=== PATIENT | female | born 1970 | race Caucasian/White ===

== ENCOUNTER 2020-06-10 07:13 | Outpatient (CLI) | payer SELFPAY ==
[2020-06-10 07:47] LABS: Basophils Absolute Auto 0.1 K/mm3 (0.0-0.1); Eosinophils Absolute Auto 0.2 K/mm3 (0-0.3); Hematocrit 40.4 % (37.0-47.0); Hemoglobin 13.5 g/dL (12.0-15.0); Immature Granulocyte Absolute 0.03 K/mm3 (0.00-0.031); Immature Granulocyte Percent A 0.3 % (0-0.5); Lymphocytes Absolute Auto 3.81 K/mm3 (0.9-3.2); Lymphocytes Percent Auto 40.9 % (18.3-44.2); Mean Corpuscular HGB Conc 33.4 g/dl (32-36); Mean Corpuscular Hemoglobin 31.3 pg (26-34); Mean Corpuscular Volume 93.5 fl (80-100); Monocytes Absolute Auto 0.7 K/mm3 (0.1-0.6); Monocytes Percent Auto 7.2 % (2.6-8.5); Neutrophils Absolute Auto 4.5 K/mm3 (1.3-6.7); Neutrophils Percent Auto 48.6 % (45.5-73.1); Platelet Count Result 286 k/mm3 (150-375); Red Blood Count 4.32 M/mm3 (4.2-5.4); Red Cell Distribution Width 13.5 % (11.5-14.5); White Blood Count 9.3 K/mm3 (4.5-10.0)
[2020-06-10 08:02] LABS: Alanine Aminotransferase 45 U/L (4-35); Albumin Level 4.3 g/dL (3.5-5.1); Alkaline Phosphatase 131 U/L (38-126); Anion Gap 2 mmol/L (8-16); Aspartate Amino Transferase 58 U/L (14-36); Bilirubin,Total 0.4 mg/dL (0.2-1.3); Blood Urea Nitrogen 11 mg/dL (7-17); Calcium 9.4 mg/dL (8.4-10.2); Carbon Dioxide 30 mmol/L (22-30); Chloride 102 mmol/L (98-107); Cholesterol 202 mg/dL (0-200); Estimated Glomerular Filt Rate > 60; Glucose 100 mg/dL (65-105); HDL Direct 45 mg/dL; Potassium 4.3 mmol/L (3.4-5.0); Sodium 134 mmol/L (137-145); Triglycerides 252 mg/dL (<150)
[2020-06-10 08:13] LABS: LDL Cholesterol Direct 128 mg/dL
== END 2020-06-10 07:14 | disposition home or self-care (01) ==
PROVIDERS: PCP Family Medicine; Visit Provider Physician Assistant
DX: Z13.220 Encounter for screening for lipoid disorders (principal); G89.4 Chronic pain syndrome; R42 Dizziness and giddiness
CPT/HCPCS: 36415; 80053; 80061; 85025

== ENCOUNTER 2020-12-12 15:35 | Outpatient (CLI) | payer OTHER, SELFPAY ==
--- NOTE | ~2020-12-12 | MM_ITS ---
EXAMINATION: MM screening emiliano BI w elodia HISTORY: Screening TECHNIQUE: Craniocaudal and mediolateral oblique 3-D tomosynthesis images were obtained and synthetic 2-D images were generated. CAD analysis was submitted and interpreted. COMPARISON: Comparison to multiple prior studies sequentially, with oldest reviewed study dated 07/08. BREAST PARENCHYMAL COMPOSITION: There are scattered areas of fibroglandular density. FINDINGS: There is no evidence of suspicious mass, calcification, or architectural distortion to sugg est malignancy in either breast. There has been no suspicious interval change. IMPRESSION: 1. No mammographic evidence of malignancy. 2. Recommend routine screening mammography in one year. BI-RADS Category 1: Negative Reviewed, dictated and finalized at location A.
== END 2020-12-12 15:36 | disposition home or self-care (01) ==
PROVIDERS: PCP Family Medicine; Visit Provider Physician Assistant
DX: Z12.31 Encounter for screening mammogram for malignant neoplasm of breast (principal)
CPT/HCPCS: 77063; 77067

== ENCOUNTER 2021-02-08 14:36 | Outpatient (CLI) | payer SELFPAY ==
[2021-02-08 15:22] LABS: Alanine Aminotransferase 51 U/L (4-35); Anion Gap 15 mmol/L (8-16); Aspartate Amino Transferase 68 U/L (14-36); Blood Urea Nitrogen 16 mg/dL (7-17); Calcium 9.7 mg/dL (8.4-10.2); Carbon Dioxide 22 mmol/L (22-30); Chloride 104 mmol/L (98-107); Estimated Glomerular Filt Rate 58; Glucose 124 mg/dL (65-110); Potassium 4.1 mmol/L (3.4-5.0); Sodium 141 mmol/L (137-145)
== END 2021-02-08 14:37 | disposition home or self-care (01) ==
LOC: ANHLAB 14:41
PROVIDERS: PCP Family Medicine; Visit Provider Physician Assistant
DX: E87.1 Hypo-osmolality and hyponatremia (principal); R74.8 Abnormal levels of other serum enzymes
CPT/HCPCS: 36415; 80048; 84450; 84460

== ENCOUNTER 2021-12-17 08:11 | Outpatient (CLI) | payer OTHER, SELFPAY ==
--- NOTE | ~2021-12-17 | XR_ITS ---
XR knee LT min 4V DATE: 12/17/2021 08:44 INDICATION: Chronic left knee pain TECHNIQUE: Weightbearing AP, PA and lateral views. Anegam view. COMPARISON: None FINDINGS: There is distention of suprapatellar bursa consistent with joint effusion. There is mild periarticular spurring at the patellofemoral joint and moderate loss of height of media l compartment joint space. No fracture or dislocation, periosteal reaction or bone destruction is evident. No radiopaque intra-a rticular loose body or chondrocalcinosis is detected. Ununited anterior tibial tuberosity. IMPRESSION: Joint effusion Mild osteoarthritis involving patellofemoral and medial compartments Reviewed, dictated and finalized at location B.
--- NOTE | ~2021-12-17 | XR_ITS ---
XR lumbar spine min 4V DATE: 12/17/2021 08:44 INDICATION: Spondylolisthesis TECHNIQUE: AP, lateral, bilateral oblique, coned lateral lumbosacral views COMPARISON: None FINDINGS: There is normal alignment of the lumbar spine. No fracture or bone destruction. The lumba r pedicles are intact. There is grade 1 anterolisthesis at L4-5. There is severe degenerative disc disease at L5-S1 with retrolisthesis. There is mild degenerative disc disease of the remaining lumbar interspaces. The sacroiliac joints are normal. Status post cholecystectomy. IMPRESSION: Severe degenerative disc disease and retrolisthesis at L5-S1; mild degenerative disc dise ase of remainder of lumbar spine Grade 1 anterolisthesis at L4-5 Reviewed, dictated and finalized at location B. IMPRESSION: Severe degenerative disc disease and retrolisthesis at L5-S1; mild degenerative disc disease of remainder of lumbar spine Grade 1 anterolisthesis at L4-5
--- NOTE | ~2021-12-17 | XR_ITS ---
EXAMINATION: XR chest 2V 12/17/2021 08:44 INDICATION: Cough PROCEDURE: 2 view chest COMPARISON: 05/22/2018 FINDINGS: The lungs are clear. The cardiomediastinal silhouette is within normal limits. There are no pleural effusions. There is no pneumothorax suspected. Elevation of the left diaphragm appears c hronic. IMPRESSION: 1: NO ACUTE CARDIOPULMONARY DISEASE. Reviewed, dictated and finalized at location A.
[2021-12-17 09:42] LABS: Amphetamine Screen Urine Negative (Negative); Barbiturate Screen Urine Negative (Negative); Benzodiazepines Screen Urine Negative (Negative); Cannabinoid Screen Urine Negative (Negative); Cocaine Screen Urine Negative (Negative); Methadone Screen Urine Negative (Negative); Opiate Screen Urine Positive (Negative); Phencyclidine Screen Urine Negative (Negative)
== END 2021-12-17 08:12 | disposition home or self-care (01) ==
PROVIDERS: PCP Family Medicine; Visit Provider Nurse Practitioner Gerontology
DX: F11.90 Opioid use, unspecified, uncomplicated (principal); R05.9 Cough, unspecified; M47.816 Spondylosis without myelopathy or radiculopathy, lumbar region; M51.37 Other intervertebral disc degeneration, lumbosacral region; M25.462 Effusion, left knee; M17.12 Unilateral primary osteoarthritis, left knee
CPT/HCPCS: 71046; 72110; 73564; 80307

== ENCOUNTER 2022-03-14 08:50 | Outpatient (CLI) | payer OTHER, SELFPAY ==
--- NOTE | ~2022-03-14 | CT_ITS ---
EXAMINATION: CT brain wo con DATE: 03/14/2022 09:15 INDICATION: Increasing headaches, confusion TECHNIQUE: Computed tomography (CT) of the head was performed without intravenous contrast. The mA wa s adjusted according to patient size. Iterative reconstruction technique was employed. Exam dose: 60 5.33 mGy-cm total exam DLP. COMPARISON: None FINDINGS: No intracranial mass lesion or hemorrhage or cerebrovascular accident. No midline shift or mass effect. Normal ventricular size. Normal little-white matter differentiation. No subdural or epidur al hematoma. No skull fracture or bone destruction. The mastoid air cells and included paranasal sinuses are micah lly developed and aerated. IMPRESSION: Negative Reviewed, dictated and finalized at Location A. Reviewed, dictated and finalized at location A. IMPRESSION: Negative
== END 2022-03-14 08:51 | disposition home or self-care (01) ==
PROVIDERS: PCP Family Medicine; Visit Provider Nurse Practitioner Gerontology
DX: R51.9 Headache, unspecified (principal); R41.0 Disorientation, unspecified
CPT/HCPCS: 70450

== ENCOUNTER 2022-07-01 06:59 | Outpatient (CLI) | payer OTHER, SELFPAY ==
[2022-07-01 07:23] LABS: Hematocrit 42.6 % (37.0-47.0); Hemoglobin 13.8 g/dL (12.0-15.0); Mean Corpuscular HGB Conc 32.4 g/dl (32-36); Mean Corpuscular Hemoglobin 30.2 pg (26-34); Mean Corpuscular Volume 93.2 fl (80-100); Platelet Count Result 325 k/mm3 (150-375); Red Blood Count 4.57 M/mm3 (4.2-5.4); Red Cell Distribution Width 13.7 % (11.5-14.5); White Blood Count 8.4 K/mm3 (4.5-10.0)
[2022-07-01 07:24] LABS: Basophils Absolute Auto 0.1 K/mm3 (0.0-0.1); Eosinophils Absolute Auto 0.1 K/mm3 (0-0.3); Eosinophils Percent Auto 1.6 % (0-4.4); Immature Granulocyte Absolute 0.03 K/mm3 (0.00-0.031); Immature Granulocyte Percent A 0.4 % (0-0.5); Lymphocytes Absolute Auto 3.09 K/mm3 (0.9-3.2); Monocytes Absolute Auto 0.5 K/mm3 (0.1-0.6); Monocytes Percent Auto 5.9 % (2.6-8.5); Neutrophils Absolute Auto 4.5 K/mm3 (1.3-6.7); Neutrophils Percent Auto 54.1 % (45.5-73.1)
[2022-07-01 07:33] LABS: Alanine Aminotransferase 70 U/L (6-35); Albumin Level 4.5 g/dL (3.5-5.1); Alkaline Phosphatase 183 U/L (38-126); Anion Gap 8 mmol/L (8-16); Aspartate Amino Transferase 88 U/L (14-36); Bilirubin,Total 0.6 mg/dL (0.2-1.3); Blood Urea Nitrogen 12 mg/dL (7-17); Calcium 9.5 mg/dL (8.4-10.2); Carbon Dioxide 27 mmol/L (22-30); Chloride 103 mmol/L (98-107); Cholesterol 240 mg/dL (0-200); Estimated Glomerular Filt Rate > 60; Glucose 118 mg/dL (65-110); HDL Direct 40 mg/dL; Potassium 4.4 mmol/L (3.4-5.0); Sodium 138 mmol/L (137-145); Triglycerides 269 mg/dL (<150)
[2022-07-01 07:44] LABS: Hemoglobin A1C 5.7 % (<5.7)
[2022-07-01 07:45] LABS: LDL Cholesterol Direct 129 mg/dL
== END 2022-07-01 07:00 | disposition home or self-care (01) ==
LOC: ANHLAB 07:01
PROVIDERS: PCP Family Medicine; Visit Provider Nurse Practitioner Gerontology
DX: F11.90 Opioid use, unspecified, uncomplicated (principal); F17.200 Nicotine dependence, unspecified, uncomplicated; F41.9 Anxiety disorder, unspecified; G47.00 Insomnia, unspecified; M79.671 Pain in right foot; M79.672 Pain in left foot; R42 Dizziness and giddiness; R51.9 Headache, unspecified
CPT/HCPCS: 36415; 80053; 80061; 83036; 84443; 85025

== ENCOUNTER → 2022-07-04 08:22 | Outpatient (CLI) | payer OTHER, SELFPAY ==
--- NOTE | ~2022-07-04 | US_ITS ---
US abdomen complete EXAMINATION: US Abdomen Complete INDICATION: Elevated liver function tests. Status post cholecystectomy. PROCEDURE: Realtime High Resolution abdomen ultrasound. COMPARISON: No prior studies for comparison FINDINGS: Gallbladder is surgically absent. Common bile duct measures 5 mm. Liver echotexture is increased, consistent with fatty infiltration. Liver is enlarged measuring 21 cm . Pancreas within normal limits. Pancreatic tail is obscured by bowel gas. Spleen is unremarkeable . There is a 1.3 cm echogenic focus in the left kidney, suspicious for renal stone. No hydronephrosis or solid mass. Right kidney measures 11.1 cm. Left kidney measures 10.1 cm. Visualized aspects of the aorta and IVC are within normal limits. Portal vein is patent. IMPRESSION: 1: Hepatomegaly with fatty infiltration. 2: Echogenic focus of the left kidney measuring 13 mm, suspicious for nonobstructing nephrolithiasis. Reviewed, dictated and finalized at [facility]. TIC CUTTER IMPRESSION: 1: Hepatomegaly with fatty infiltration. 2: Echogenic focus of the left kidney measuring 13 mm, suspicious for nonobstru cting nephrolithiasis.
== END ==
PROVIDERS: PCP Family Medicine; Visit Provider Nurse Practitioner Gerontology
DX: R74.8 Abnormal levels of other serum enzymes (principal); K76.0 Fatty (change of) liver, not elsewhere classified
CPT/HCPCS: 76700

== ENCOUNTER → 2022-11-21 10:29 | Outpatient (CLI) | payer OTHER, SELFPAY ==
--- NOTE | ~2022-11-21 | XR_ITS ---
Left Knee Technique: AP, lateral, and sunrise views were obtained. Clinical History: Pain Findings: No fracture or dislocation is seen. Findings consistent with old Bism[place]-Schlatter's disease . Osseous alignment is anatomic. Minimal patellar spurring noted. Soft tissues are unremarkable. No j oint effusion is seen. Impression: No acute abnormality. Old Brennon-Schlatter's disease. Minimal patellar spurring. Reviewed, dictated and finalized at location M. Impression: No acute abnormality. Old Bism[place]-Schlatter's disease. Minimal patellar spurring.
== END ==
PROVIDERS: PCP Nurse Practitioner Family; Visit Provider Nurse Practitioner Family
DX: M25.562 Pain in left knee (principal)
CPT/HCPCS: 73562

== ENCOUNTER → 2023-04-23 14:46 | Outpatient (CLI) | payer OTHER, SELFPAY ==
--- NOTE | ~2023-04-23 | XR_ITS ---
EXAM: XR knee RT 3V DATE: 04/23/2023 15:17 HISTORY: Unilateral primary osteoarthritis, right knee . COMPARISON: None available. FINDINGS: Normal mineralization. No fracture or dislocation. Chronic fragmentation at the tibial tub erosity, possible chronic sequela of Gail-Schlatter disease. Mild medial joint space narrowing. Mil d tricompartmental osteophytosis. Moderate volume joint fluid. No lytic or blastic lesion. Joint spac es are maintained. No erosion or periosteal change. Soft tissues within normal limits. IMPRESSION: Mild tricompartmental right knee osteoarthritis. Moderate volume joint effusion. Reviewed, dictated and finalized at location K. RAL DRIVER IMPRESSION: Mild tricompartmental right knee osteoarthritis. Moderate volume sherry int effusion.
== END ==
PROVIDERS: PCP Nurse Practitioner Family; Visit Provider Nurse Practitioner Family
DX: M17.11 Unilateral primary osteoarthritis, right knee (principal); M25.461 Effusion, right knee
CPT/HCPCS: 73562

== ENCOUNTER → 2023-06-19 14:46 | Outpatient (CLI) | payer OTHER, SELFPAY ==
--- NOTE | ~2023-06-19 | XR_ITS ---
EXAMINATION: XR hip BI 2V w AP pelvis DATE: 06/19/2023 15:23 INDICATION: Pain in unspecified hip. TECHNIQUE: An anteroposterior view pelvis and 2 views of each hip were obtained. COMPARISON: None. FINDINGS: Bone alignment is normal. No fracture. There is severe lower lumbar spondylosis. There is m oderate osteoarthritis of the hips. IMPRESSION: 1. Moderate osteoarthritis of the hips. Reviewed, dictated and finalized at location E. ICE CLINICAL MANAGER
== END ==
PROVIDERS: PCP Nurse Practitioner Family; Visit Provider Nurse Practitioner Family
DX: M16.0 Bilateral primary osteoarthritis of hip (principal)
CPT/HCPCS: 73521

== ENCOUNTER 2025-05-03 10:25 | Outpatient (CLI) | payer OTHER, SELFPAY ==
--- NOTE | 2025-05-03 10:27 | EST_ITS ---
Patient Info Name: Devika Adams Age: 55 years : 1970 Gender: Female Ht: 68 in Wt: 202 lbs BSA: 2.12 m2 HR: 86 bpm BP: 132 / 85 mmHg Exam Date: 05/03/2025 10:27 AM Patient Status: O Admit Date: 05/03/2025 Exam Type: CA stress test treadmill An exercise stress test was performed. Staff Attending Provider: Sabrina Goss Exercise Technologist: Tamanna Henderson Exercise Physician: Toño Hernandez DO Summary 1. 1. Negative [place] exercise stress test for ischemic ST changes by ECG criteria. However, patient achieved only 82% MPHR for age group which reduces sensitivity of the test. 2. 2. Reduced functional capacity, achieving 7.7 METs of workload. 3. 3. Appropriate HR response to exercise. 4. 4. Appropriate HR recovery at 1 minute post exercise. 5. 5. No imaging with stress testing. 6. 6. Patient informed of the above results. Protocol: [place] Stress ECG Details Stage: REST Duration (min): 0 min : 37 sec Speed (mph): 0.0 Grade (%): 0 HR (bpm): 89 SBP (mmHg): --- DBP (mmHg): --- METS: --- Stage: REST Duration (min): 6 min : 25 sec Speed (mph): 0.0 Grade (%): 0 HR (bpm): 90 SBP (mmHg): 132 DBP (mmHg): 85 METS: --- Stage: RECOVERY Duration (min): 1 min : 31 sec Speed (mph): 0.0 Grade (%): 0 HR (bpm): 124 SBP (mmHg): 150 DBP (mmHg): 78 METS: --- Stage: RECOVERY Duration (min): 2 min : 31 sec Speed (mph): 0.0 Grade (%): 0 HR (bpm): 117 SBP (mmHg): 150 DBP (mmHg): 78 METS: --- Stage: RECOVERY Duration (min): 3 min : 31 sec Speed (mph): 0.0 Grade (%): 0 HR (bpm): 105 SBP (mmHg): 139 DBP (mmHg): 76 METS: --- Stage: RECOVERY Duration (min): 4 min : 31 sec Speed (mph): 0.0 Grade (%): 0 HR (bpm): 103 SBP (mmHg): 139 DBP (mmHg): 76 METS: --- Stage: RECOVERY Duration (min): 5 min : 31 sec Speed (mph): 0.0 Grade (%): 0 HR (bpm): 100 SBP (mmHg): 149 DBP (mmHg): 76 METS: --- Stage: RECOVERY Duration (min): 5 min : 36 sec Speed (mph): 0.0 Grade (%): 0 HR (bpm): 99 SBP (mmHg): 149 DBP (mmHg): 76 METS: --- Stage: STAGE 1 Duration (min): 1 min : 0 sec Speed (mph): 1.7 Grade (%): 10 HR (bpm): 103 SBP (mmHg): 132 DBP (mmHg): 85 METS: --- Stage: STAGE 1 Duration (min): 2 min : 0 sec Speed (mph): 1.7 Grade (%): 10 HR (bpm): 111 SBP (mmHg): 132 DBP (mmHg): 85 METS: --- Stage: STAGE 1 Duration (min): 3 min : 0 sec Speed (mph): 1.7 Grade (%): 10 HR (bpm): 117 SBP (mmHg): 200 DBP (mmHg): 51 METS: --- Stage: STAGE 2 Duration (min): 1 min : 0 sec Speed (mph): 2.5 Grade (%): 12 HR (bpm): 121 SBP (mmHg): 200 DBP (mmHg): 51 METS: --- Stage: STAGE 2 Duration (min): 2 min : 0 sec Speed (mph): 2.5 Grade (%): 12 HR (bpm): 126 SBP (mmHg): 200 DBP (mmHg): 51 METS: --- Stage: STAGE 2 Duration (min): 3 min : 0 sec Speed (mph): 2.5 Grade (%): 12 HR (bpm): 130 SBP (mmHg): 200 DBP (mmHg): 51 METS: --- Stage: STAGE 3 Duration (min): 0 min : 28 sec Speed (mph): 3.4 Grade (%): 14 HR (bpm): 132 SBP (mmHg): 200 DBP (mmHg): 51 METS: --- Stage: RECOVERY Duration (min): 0 min : 31 sec Speed (mph): 0.0 Grade (%): 0 HR (bpm): 132 SBP (mmHg): 150 DBP (mmHg): 78 METS: --- Rest HR: 90 bpm Peak HR: 133 bpm Rest Sys BP: 132 mmHg Peak Sys BP: 200 mmHg Max Pred HR: 163 bpm % Max Pred HR: 82 % Target HR: 139 bpm Max RPP: 26,600 bpm*mmHg Mendez Score: -4 Termination Reason: Maximal effort/unable to continue Cardiac Symptoms: Shortness of breath, Hip pain Max ST Seg Deviation: 2.10 mm Total Time: 6 min : 28 sec Rest Valenzuela BP: 85 mmHg Peak Valenzuela BP: 51 mmHg Angina Score: None Total METS: 7.7 Resting ECG Sinus rhythm. Stress ECG No ST changes. Arrhythmias None. Report Signatures
--- OUTSIDE RECORDS SUMMARY | 2025-05-03 11:04 | XMS_ITS | Encounter Summary ---
Author Organization [facility] Address [address] [place] [address] Care Team Providers Care Seed Potato Cutter Name Role Phone Melanie Mckeon MD Primary Care Provider + Encounter Details Date Type Department Care Team (Late st Contact Info) Description 02/22/2024 Ophth Exam [facility] - Ophthalmology [address] [place] [id number] Connie Damon MD [address] [place] [address] Social History Tobacco Use Types Packs/Day Years Used Date Smoking Tobacco: Every Day Cigarettes 1 20 Alcohol Use Standard Drinks/Week Comments No 0 (1 standard drink = 0.6 oz pur e alcohol) Comments Unknown Sex and Gender Information Value Date Recorded Sex Assigned at Not on file 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
--- OUTSIDE RECORDS SUMMARY | 2025-05-03 11:04 | XMS_ITS | Clinical Summary ---
Author Organization [facility] Address [address] [place] [address] Care Team Providers Care Order Picker/Assembler Name Role Phone Melanie Mckeon MD Primary Care Provider + Source Comments [facility],non-owned Affiliates and Associated Physician Practices is amultiple site organization consisting of ambulatory clinics and hospital sitesin [place], [place], [place] and [place]. This disclosure is being madepursuant to the Care Everywhere program and may not contain all information available regarding this patient. Last updated 18.[facility] Allergies No known active allergies Medications * Be aware that medications may not be up to date on this document. Alwaysverify current medications with the patient. alprazolam (XANAX) 1 MG tablet Take 1 mg by mouth as needed for Anxiety. Active fluoxetine (PROZAC) 20 MG capsule Take 20 mg by mouth daily. 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 Gender Identity Not on file Sexual Orientation Not on file Last Filed Vital Signs Vital Sign Reading Time Taken Comments Blood Pressure 159/91 02/22/2024 7:48 PM CDT Pulse 62 02/22/2024 7:48 PM CDT Temperature 36.2 C (97.1 F) 02/22/2024 7:48 PM CDT Respiratory Rate 16 02/22/2024 7:48 PM CDT Oxygen Saturation 98% 02/22/2024 7:48 PM CDT Inhaled Oxygen Concentration - - Weight 86.2 kg (190 lb) 02/28/2009 11:47 AM CDT Height 175.3 cm (5' 9) 02/28/2009 11:47 AM CDT Body Mass Index 28.06 02/28/2009 11:47 AM CDT Plan of Treatment Health Maintenance Due Date Last Done Comments COLOGUARD (AGES 45-75) - COL ON CA SCREENING 1970 COLON MONITORING 1970 COLONOSCOPY - COLON CA SCREENING 1968 CT COLONOGRAPHY - COLON CA SCREENING 1970 Colorectal Cancer Screening 1970 FIT - COLON CA SCREENING 1970 FLEX SIG - COLON CA SCREENING 1970 LIPID TESTING 1970 MAMMOGRAM 1968 HIV SCREENING 1983 HEPATITIS C SCREENING 02/28/1986 DTAP/TDAP/TD VACCINES (1 - Tdap) 1987 HEPATITIS B VACCINE (1 of 3 - 19+ 3-dose series) 1987 PNEUMOCOCCAL VACCINE 50+ (1 of 2 - PCV) 1987 PAP SMEAR 1989 LUNG CANCER SCREENING 2018 ZOSTER VACCINE (1 of 2) 2018 DEPRESSION SCREENING 05/12/2024 COVID-19 VACCINE (2 - 2024-2 6 season) 2025 08/15/2020 INFLUENZA VACCINE (#1) 2025 HIB VACCINE Aged Out No longer eligi ble based on patient's age to complete this topic HPV VACCINE Aged Out No longer eligi ble based on patient's age to complete this topic MENINGOCOCCAL (Group B) VACC INE SHARED DECISION-MAKING Aged Out No longer eligibl e based on patient's age to complete this topic MENINGOCOCCAL GROUPS A/C/Y/W VACCINE Aged Out No longer eligible b ased on patient's age to complete this topic Insurance [employer] Care Teams Order Picker/Assembler Relationship Specialty Start Date End Date Melanie Mckeon MD [address] [facility] [address] [place] [address] PCP - General Family Medicine 02/22/24
--- OUTSIDE RECORDS SUMMARY | 2025-05-03 11:04 | XMS_ITS | Clinical Summary ---
Author Organization [employer] [facility] [employer] [facility] Address [address] [place] [address] Care Team Providers Care Collections Assistant Name Role Phone No, Pcp HEALTHCARE ADMINISTRATOR Primary Care Provider Unavailabl e Social History Tobacco Use Types Packs/Day Years Used Date Smoking Tobacco: Never Assessed Comments Unknown Sex and Gender Information Value Date Recorded Sex Assigned at Not on file Legal Sex Female 10:29 AM EST Gender Identity Not on file Sexual Orientation Not on file Plan of Treatment Not on file Medical Devices Not on file Care Teams Collections Assistant Relationship Specialty Start Date End Date No, Pcp, HEALTHCARE ADMINISTRATOR N/A Do not use PCP - General Family Medicine 04/19/20
--- OUTSIDE RECORDS SUMMARY | 2025-05-03 11:04 | XMS_ITS | Clinical Summary ---
Author Organization [facility] Address [facility] [address] [place] [address] Care Team Providers Care Behavioral Health Counselor Name Role Phone None, Provider MD Primary Care Provider Unavaila ble Allergies Active Allergy Reactions Criticality Noted Date Comments Latex Hives 02/22/2024 Medications No known medications Social History Tobacco Use Types Packs/Day Years Used Date Smoking Tobacco: Every Day Cigarettes Passive Smoke Exposure: Never Smokeless Tobacco: Never Tobacco Cessation:Ready to Q uit: Not Asked; Counseling Given: Not Answered Alcohol Use Standard Drinks/Week Comments Never 0 (1 standard drink = 0.6 oz pur e alcohol) Comments No Sex and Gender Information Value Date Recorded Sex Assigned at Not on file Legal Sex Female 3:36 PM CDT Gender Identity Not on file Sexual Orientation Not on file Last Filed Vital Signs Vital Sign Reading Time Taken Comments Blood Pressure 99/67 02/22/2024 3:42 PM CDT Pulse 89 02/22/2024 3:42 PM CDT Temperature 36.6 C (97.8 F) 02/22/2024 3:42 PM CDT Respiratory Rate 16 02/22/2024 3:42 PM CDT Oxygen Saturation 97% 02/22/2024 3:42 PM CDT Inhaled Oxygen Concentration - - Weight 93.3 kg (205 lb 11 oz) 02/22/2024 3:42 PM CDT Height 172.7 cm (5' 8) 02/22/2024 3:42 PM CDT Body Mass Index 31.27 02/22/2024 3:42 PM CDT Plan of Treatment Health Maintenance Due Date Last Done Comments Cervical Cancer Screening Pa p Smear (Age 30 to 64) Every 3 Years 1970 Colorectal Cancer Screening Colonoscopy (10 Years) 1968 Annual Physical 1971 Hepatitis C 1986 DTaP, Tdap and Td Vaccines ( 1 - Tdap) 1987 Hepatitis B Vaccines (1 of 3 - 19+ 3-dose series) 1987 Pneumococcal Vaccine: 50+ Ye ars (1 of 2 - PCV) 1987 Cervical Cancer Screening Pa p with HPV Testing (Age 30 to 64) Every 5 Years 1998 Cervical Cancer Screening with HPV 1998 Mammogram Screening 2008 Zoster Vaccines (1 of 2) 2018 COVID-19 Vaccine (1 - 2024-2 6 season) 2025 Influenza Adult (#1) 2025 Hepatitis A Vaccines Aged Out No long er eligible based on patient's age to complete this topic Meningococcal B Vaccine Aged Out No l onger eligible based on patient's age to complete this topic Meningococcal Vaccine Aged Out No kellie irving eligible based on patient's age to complete this topic RSV Immunizations Under 20 Months Aged Out No longer eligible based on patient's age to complete this topic Insurance Care Teams Behavioral Health Counselor Relationship Specialty Start Date End Date None, Provider, MD PCP - General UNKNOWN PHYSICIAN SPECIALTY 02/22/24
== END 2025-05-03 10:26 | disposition home or self-care (01) ==
LOC: ANHCARD 10:27
PROVIDERS: PCP Family Medicine
DX: R07.9 Chest pain, unspecified (principal); F17.200 Nicotine dependence, unspecified, uncomplicated
CPT/HCPCS: 93017